=== PATIENT | female | born 1965 | race Caucasian/White ===

== ENCOUNTER 2017-07-05 18:44 | Emergency (ER) | payer SELFPAY ==
[~2017-07-05] VITALS: Ht 165.1 cm; Wt 76.0 kg
[2017-07-05] MEDS ORDERED: ACETAMINOPHEN 325MG TABLET PO ONE (21:30)
[2017-07-05 22:32] LABS: CLARITY URINE CLEAR (CLEAR); COLOR URINE YELLOW (YELLOW); KETONES URINE NEGATIVE (NEGATIVE); LEUKOCYTE ESTERASE URINE 1+ (NEGATIVE); NITRITE URINE NEGATIVE (NEGATIVE); OCCULT BLOOD URINE NEGATIVE (NEGATIVE); PROTEIN URINE NEGATIVE (NEGATIVE); SPECIFIC GRAVITY URINE 1.011 (1.005-1.030); UROBILINOGEN URINE 0.2 E.U./dL (0.2-1.0)
[2017-07-05 23:00] VITALS: BP 122/70
== END 2017-07-05 23:00 | disposition home or self-care (01) ==
LOC: ER 18:46
DX: S20.211A Contusion of right front wall of thorax, initial encounter (principal); M25.561 Pain in right knee; N39.0 Urinary tract infection, site not specified; V29.40XA Motorcycle driver injured in collision with unspecified motor vehicles in traffic accident, initial encounter; Y93.I9 Activity, other involving external motion; Y92.89 Other specified places as the place of occurrence of the external cause; Y99.8 Other external cause status
CPT/HCPCS: 71101; 81001; 99285